=== PATIENT | female | born 1960 | race Caucasian/White ===

== ENCOUNTER 2019-11-28 11:55 | Inpatient (IN) ==
[2019-11-28] MEDS ORDERED: DUONEB (A & A) INH PRN (12:49)
[2019-11-28] MEDS ORDERED: ZITHROMAX 500 MG/NS 500 MG/250 ML IVPB IV ONE (13:00)
[2019-11-28 13:07] LABS: BASO# 0.06 X1000 (0.0-0.2); BASO% 0.5 % (0.0-0.8); EOS# 0.05 X1000 (0.0-0.7); EOS% 0.4 % (0.0-10.0); HEMATOCRIT 37.6 % (37.0-47.0); HEMOGLOBIN 11.6 g/dL (12.0-16.0); IMM GRAN# 0.05 X1000 (0.0-0.04); IMM GRAN% 0.4 % (0.0-0.5); LYMPH# 1.27 X1000 (1.2-3.4); LYMPH% 9.5 % (20.5-51.1); MCH 26.7 PG (27-31); MCHC 30.9 g/dL (33-37); MCV 86.6 FL (81-99); MONO# 1.16 X1000 (0.11-0.59); MONO% 8.7 % (1.7-9.3); MPV 10.9 FL (7.4-10.4); NEUT# 10.71 X1000 (1.4-6.5); NEUT% 80.5 % (42.2-75.2); PLT 262 X1000 (130-400); RBC 4.34 XMIL (4.2-5.4); RDW 17.6 % (11.5-14.5)
[2019-11-28] MEDS: ROCEPHIN 1 GM in NS 50 ML IV SCH (13:33)
[2019-11-28] MEDS: APRESOLINE IV PRN (13:33)
[2019-11-28 13:37] LABS: AGAP 15; ALBUMIN 3.9 g/dL (3.5-5.0); ALKALINE PHOSPHATASE 134 U/L (32-104); BUN 14 mg/dL (8-22); CALCIUM 9.8 mg/dL (8.8-10.2); CHLORIDE 102 mmol/L (98-107); COSMO 284; CREATININE 0.7 mg/dL (0.5-0.9); ESTIMATED GFR > 60; GLUCOSE 167 mg/dL (70-104); GOT 26 U/L (10-30); GPT 27 U/L (10-36); POTASSIUM 3.7 mmol/L (3.5-5.1); SODIUM 140 mmol/L (136-145); TCO2 23 mmol/L (25-35); TOTAL PROTEIN 7.8 g/dL (6.3-8.3)
--- NOTE | 2019-11-28 13:56 | EKG Report ---
Test Performed on : 11/28/2019 1:38:20 PM Test Reason : assess rhythm Blood Pressure : / mmHG Vent. Rate : 111 BPM Atrial Rate : 111 BPM P-R Int : 148 ms QRS Dur : 092 ms QT Int : 330 ms P-R-T Axes : 058 011 070 degrees QTc Int : 448 ms Sinus tachycardia. Otherwise normal ECG When compared with ECG of 08-FEB-2016 18:48, Vent. rate has increased BY 38 BPM Confirmed by Maxx Oconnell MD ([id number]) on 12/11/2019 5:57:37 AM
[2019-11-28] MEDS ORDERED: SOLU-MEDROL IV ONE (13:59)
[2019-11-28] MEDS: ZOFRAN IV PRN (14:45)
[2019-11-28] MEDS: TYLENOL PO PRN (14:45)
[2019-11-28] MEDS ORDERED: SYNTHROID PO SCH (14:45)
--- NOTE | 2019-11-28 14:57 | HISTORY AND PHYSICAL ---
PRIMARY CARE PROVIDER: Dr. Cristobal. CHIEF COMPLAINT: Direct admit for pneumonia. HISTORY OF PRESENT ILLNESS: Ms. Hernandez is a 59-year-old, female, who carries a past medical history of COPD, hypertension, sleep apnea, chronic pain secondary to fibromyalgia, arthritis, anxiety, depression, lupus, rheumatoid arthritis, hypothyroid disorder. Quit smoking 58 days ago. Prior to that, she was about a 1 pack every 2 days smoker, has done so since the age of 20. She reports she has been around her grand babies who have had RSV. She started wheezing a couple of days ago, having shortness of breath and a nonproductive cough, and for 2 days has had some nausea with diarrhea, about 3 to 4 episodes. Her home breathing treatments were not working. She went to the doctor's office to be evaluated. She was diagnosed with pneumonia, told that she was flu negative, and was directly admitted to the hospital. She does have a white count of 13. Temperature is 98.3 degrees. She was tachycardic at 119, hypertensive at 209/87. She was 97% on room air. Will initiate her on IV antibiotics, supplemental O2, bronchodilators, IV steroids, give her a dose of Apresoline now, and p.r.n. antiemetics. PAST MEDICAL HISTORY: Per HPI. PAST SURGICAL HISTORY: Cholecystectomy, hysterectomy, section, tonsillectomy, gastric bypass. FAMILY HISTORY: Not pertinent. SOCIAL HISTORY: She is , at bedside. She does have children and grandchildren, a total of 5. She was a 1 pack per day smoker every 2 days, has done so since the age of 20. She quit 58 days ago. No alcohol or illicit drug use. REVIEW OF SYSTEMS: Positive for fever, chills, cough (nonproductive). Positive for nausea and diarrhea for 2 days, 3 to 4 episodes, no appetite. No chest pain. No palpitations. Positive for wheezing. MEDICATIONS: Home medications are being compiled. PHYSICAL EXAMINATION: VITAL SIGNS: Temperature is 98.3 degrees, heart rate 119, respirations 20, blood pressure 209/87, O2 is 97% on room air. GENERAL: Ms. Hernandez is a pleasant, 59-year-old, female, who is sitting up in the bed in no acute distress. HEENT: Atraumatic, normocephalic. PERRL. NECK: Supple. Trachea midline. CARDIOVASCULAR: S1, S2 appreciated, but tachycardic. No murmurs, gallops, or rubs. RESPIRATORY: Lung sounds, more rhonchi on the left. Inspiratory and expiratory wheezes noted throughout. ABDOMEN: Obese, soft, nontender, nondistended. Positive bowel sounds x4 quadrants. LOWER EXTREMITIES: Negative for edema. NEUROLOGIC: No focal deficits noted. She is awake, alert, oriented, answers all questions appropriately, asking for water and food. DIAGNOSTIC DATA: EKG does show sinus tachycardia at 111 beats per minute. Chest x-ray is currently pending. LABORATORY DATA: White count 13, hemoglobin and hematocrit 11 and 37, platelet count 262,000. Sodium 140, potassium 3.7, BUN 14, creatinine 0.7, blood glucose is 167. Blood culture is pending. Sputum culture pending. ASSESSMENT AND PLAN: 1. Pneumonia. Will initiate her on intravenous antibiotics, supplemental oxygen, bronchodilators, aggressive pulmonary toilet. Currently awaiting blood cultures and sputum cultures. 2. Chronic obstructive pulmonary disease exacerbation. Will give her a dose of intravenous steroids now. Continue with scheduled steroids, bronchodilators, supplemental oxygen aggressive pulmonary toilet, intravenous antibiotics. 3. Nausea and diarrhea. Will continue with antiemetics. 4. Tachycardia. 5. Accelerated hypertension. We did give her a dose of intravenous Apresoline, and have Apresoline ordered as needed. Will start her back on her home metoprolol. 6. Diabetes mellitus with hyperglycemia. Will continue her home metformin. Place her on sliding scale and fingerstick blood sugars. Check hemoglobin A1c. 7. Chronic pain syndrome. Continue her home [place]. 8. Anxiety and depression. Will continue home medications. 9. Hypothyroidism. Will continue Synthroid. Check TSH in the morning. Further recommendation to follow physician evaluation, laboratory and diagnostic data. Dictated by DHRUV Coreas for Keegan Cristobal MD cc: Keegan Cristobal MD [facility]
[2019-11-28] MEDS: DUONEB (A & A) INH SCH ×3 (15:20→23:51)
[2019-11-28 16:04] LABS: BASO# 0.07 X1000 (0.0-0.2); BASO% 0.5 % (0.0-0.8); EOS# 0.04 X1000 (0.0-0.7); EOS% 0.3 % (0.0-10.0); HEMATOCRIT 35.4 % (37.0-47.0); HEMOGLOBIN 10.8 g/dL (12.0-16.0); IMM GRAN# 0.05 X1000 (0.0-0.04); IMM GRAN% 0.4 % (0.0-0.5); LYMPH# 1.42 X1000 (1.2-3.4); LYMPH% 10.6 % (20.5-51.1); MCH 26.3 PG (27-31); MCHC 30.5 g/dL (33-37); MCV 86.3 FL (81-99); MONO# 0.94 X1000 (0.11-0.59); MPV 11.1 FL (7.4-10.4); NEUT# 10.89 X1000 (1.4-6.5); NEUT% 81.2 % (42.2-75.2); PLT 236 X1000 (130-400); RDW 17.4 % (11.5-14.5); WBC 13.41 X1000 (4.8-10.8)
[2019-11-28 16:14] LABS: BE 1.5 mmoll (-3.0-3.0); BLOOD TYPE ARTERIAL; O2(CT) 18.5 mL/dL (15.0-23.0); O2HB 92.6 % (95.0-99.0); PCO2(98.6) 34 mmHg (35-45); PO2(98.6) 64 mmHg (60-100); SAMPLE BLOOD; SAO2 95.1 % (95.0-100.0); THB 14.2 g/dL (11.5-17.4); pH(98.6) 7.47 (7.35-7.45)
[2019-11-28 16:17] LABS: ALLEN TEST YES; MODALITY ROOM AIR
[2019-11-28 16:23] LABS: INR 1.07; PROTIME 14.5 Seconds (11.0-16.0)
[2019-11-28 16:24] LABS: PTT 35.1 Seconds (22.3-41.8)
[2019-11-28] MEDS: NEURONTIN PO SCH (16:47)
[2019-11-28] MEDS: GLUCOPHAGE PO SCH (16:47)
[2019-11-28] MEDS: REQUIP PO SCH (16:47)
--- NOTE | 2019-11-28 17:16 | Diag Imaging Result Doc PS360 ---
EXAM: CHEST-2 VIEWS HISTORY: Pneumonia TECHNIQUE: Two views COMPARISON: 01/16/2018 FINDINGS: The lungs are well expanded. The heart is not enlarged. The vessels are not distended. There are dense mid left lung infiltrates. No pleural effusions. IMPRESSION: Left upper lobe pneumonia. Short-term interval follow-up recommended to ensure there is clearing. Electronically signed by Brigido Sol 11/28/2019 5:14 PM
[2019-11-28 17:43] LABS: URINE SOURCE CLEAN CATCH
[2019-11-28 17:50] LABS: BILIRUBIN URINE NEGATIVE (NEGATIVE); BLOOD URINE NEGATIVE (NEGATIVE); COLOR YELLOW; GLUCOSE URINE TRACE mg/dL (NEGATIVE); KETONE URINE 20 mg/dL (NEGATIVE); LEUKOCYTES URINE NEGATIVE (NEGATIVE); NITRITE URINE NEGATIVE (NEGATIVE); PROTEIN URINE TRACE mg/dL (NEGATIVE); SP GRAVITY URINE 1.015; TURBIDITY URINE CLEAR (CLEAR); UROBILINOGEN URINE NORMAL (NORMAL)
[2019-11-28 17:51] LABS: UR EPITHELIAL CELLS <10 /HPF (<10); URINE BACTERIA NEGATIVE /HPF; URINE RBC <10 /HPF (<10); URINE WBC <10 /HPF (<10)
[2019-11-28] MEDS: PULMICORT INH SCH (19:46)
[2019-11-28] MEDS: CYMBALTA PO SCH (20:19)
[2019-11-28] MEDS: MUCINEX PO SCH (20:19)
[2019-11-28] MEDS: SEROQUEL PO SCH (20:20)
[2019-11-28] MEDS: ZANAFLEX PO SCH (20:20)
[2019-11-28] MEDS: LOPRESSOR PO SCH (20:20)
[2019-11-28] MEDS: NORCO-10 PO PRN (20:21)
[2019-11-28] MEDS: SOLU-MEDROL IV SCH (22:21)
[2019-11-29] MEDS: DUONEB (A & A) INH SCH ×6 (04:30→22:53)
[2019-11-29] MEDS: ZANAFLEX PO SCH ×3 (06:00→20:48)
[2019-11-29 06:08] LABS: AGAP 16; ALBUMIN 4.1 g/dL (3.5-5.0); ALKALINE PHOSPHATASE 142 U/L (32-104); BUN 16 mg/dL (8-22); CALCIUM 10.2 mg/dL (8.8-10.2); CHLORIDE 101 mmol/L (98-107); COSMO 291; CREATININE 0.9 mg/dL (0.5-0.9); ESTIMATED GFR > 60; GLUCOSE 293 mg/dL (70-104); GOT 26 U/L (10-30); GPT 30 U/L (10-36); POTASSIUM 3.9 mmol/L (3.5-5.1); SODIUM 140 mmol/L (136-145); TCO2 23 mmol/L (25-35)
[2019-11-29 06:12] LABS: HEMOGLOBIN A1C 7.1 % (4.8-6.0)
[2019-11-29] MEDS: TYLENOL PO PRN (06:22)
[2019-11-29] MEDS: SOLU-MEDROL IV SCH ×3 (06:22→22:05)
[2019-11-29 06:27] LABS: BASO# 0.04 X1000 (0.0-0.2); BASO% 0.3 % (0.0-0.8); HEMATOCRIT 37.9 % (37.0-47.0); HEMOGLOBIN 11.4 g/dL (12.0-16.0); IMM GRAN# 0.12 X1000 (0.0-0.04); IMM GRAN% 0.8 % (0.0-0.5); LYMPH# 1.39 X1000 (1.2-3.4); LYMPH% 9.6 % (20.5-51.1); MCH 26.3 PG (27-31); MCHC 30.1 g/dL (33-37); MCV 87.3 FL (81-99); MONO% 4.2 % (1.7-9.3); MPV 11.5 FL (7.4-10.4); NEUT# 12.29 X1000 (1.4-6.5); NEUT% 85.1 % (42.2-75.2); PLT 272 X1000 (130-400); RBC 4.34 XMIL (4.2-5.4); RDW 17.9 % (11.5-14.5); WBC 14.44 X1000 (4.8-10.8)
[2019-11-29 07:07] LABS: BANDS 4 % (0-1); LYMPHS 6 % (21-51); MONO 4 % (1-9); SEGS 86 % (42-75)
[2019-11-29] MEDS: PULMICORT INH SCH ×2 (07:51→19:24)
[2019-11-29] MEDS: ABILIFY PO SCH (08:53)
[2019-11-29] MEDS: REQUIP PO SCH ×3 (08:53→20:48)
[2019-11-29] MEDS: GLUCOPHAGE PO SCH ×2 (08:53→16:37)
[2019-11-29] MEDS: LOPRESSOR PO SCH ×2 (08:53→20:48)
[2019-11-29] MEDS: ZITHROMAX PO SCH (08:53)
[2019-11-29] MEDS: MUCINEX PO SCH ×2 (08:54→20:47)
[2019-11-29] MEDS: PRINIVIL PO SCH (08:54)
[2019-11-29] MEDS: XARELTO PO SCH (08:54)
[2019-11-29] MEDS: NEURONTIN PO SCH ×3 (08:54→20:47)
[2019-11-29] MEDS: ROCEPHIN 1 GM in NS 50 ML IV SCH (14:40)
[2019-11-29] MEDS: HUMALOG (PARKWAY) SUBQ SCH ×2 (19:49→21:04)
[2019-11-29] MEDS: CYMBALTA PO SCH (20:47)
[2019-11-29] MEDS: SEROQUEL PO SCH (20:48)
--- NOTE | 2019-11-29 21:52 | PROGRESS NOTE ---
DATE: 11/29/2019 SUBJECTIVE: Patient notes that she is feeling a lot better. Still having some cough and congestion, but overall breathing has improved. PHYSICAL EXAMINATION: Temperature 97.8, pulse 81, respiratory rate 18, BP 173/86.General: Patient is in no current respiratory distress, although she is lying flat in the bed. She has just received a breathing treatment. HEENT: Normocephalic. Neck: Supple. Cardiovascular: Regular rate. No murmurs. Chest: Decreased but equal. No current crackles. No wheezing. Abdomen: Soft, nondistended. Extremities: Moves all extremities. ASSESSMENT: 1. Pneumonia. 2. Chronic obstructive pulmonary disease with exacerbation. 3. Hypertension. 4. Diabetes with A1c at 7.1. 5. Leukocytosis. 6. Hypothyroidism. 7. Chronic pain. 8. Anxiety/depression. PLAN: We will continue patient in the hospital. Continue antibiotics and breathing treatments. We will add lisinopril. Continue sliding-scale insulin and will follow. cc: Keegan Cristobal MD
[2019-11-30] MEDS: NORCO-10 PO PRN ×2 (00:40→22:20)
[2019-11-30] MEDS: DUONEB (A & A) INH SCH ×6 (02:55→23:04)
[2019-11-30] MEDS: HUMALOG (PARKWAY) SUBQ SCH ×4 (07:04→22:07)
[2019-11-30] MEDS: SOLU-MEDROL IV SCH ×3 (07:04→22:07)
[2019-11-30] MEDS: ZANAFLEX PO SCH ×3 (07:05→22:05)
[2019-11-30] MEDS: PULMICORT INH SCH ×2 (07:14→19:40)
[2019-11-30] MEDS: REQUIP PO SCH ×3 (08:04→16:26)
[2019-11-30] MEDS: GLUCOPHAGE PO SCH ×2 (08:04→16:26)
[2019-11-30] MEDS: ABILIFY PO SCH (08:04)
[2019-11-30] MEDS: NEURONTIN PO SCH ×3 (08:04→16:26)
[2019-11-30] MEDS: MUCINEX PO SCH ×2 (08:04→22:03)
[2019-11-30] MEDS: ZITHROMAX PO SCH (08:04)
[2019-11-30] MEDS: XARELTO PO SCH (08:05)
[2019-11-30] MEDS: PRINIVIL PO SCH (08:05)
[2019-11-30] MEDS: LOPRESSOR PO SCH ×2 (08:05→22:05)
[2019-11-30] MEDS: TYLENOL PO PRN ×2 (10:23→18:48)
--- NOTE | 2019-11-30 10:52 | Diag Imaging Result Doc PS360 ---
EXAM: CHEST-2 VIEWS - 11/30/2019 HISTORY: hypoxia TECHNIQUE: Chest two views COMPARISON: 11/28/2019 FINDINGS: Heart size is normal. There is been interval decrease in left upper lobe infiltrate. The right lung remains clear. There is no pleural effusion or pneumothorax identified. IMPRESSION: Decrease in left upper lobe infiltrate. Electronically signed by Nicolas Matos 11/30/2019 10:50 AM
[2019-11-30] MEDS: ROCEPHIN 1 GM in NS 50 ML IV SCH (13:06)
[2019-11-30] MEDS: CYMBALTA PO SCH (22:05)
[2019-11-30] MEDS: SEROQUEL PO SCH (22:05)
--- NOTE | 2019-11-30 23:16 | PROGRESS NOTE ---
DATE: 11/30/2019 SUBJECTIVE: The patient notes she still feels bad, but feels much better than admission. She is still having some shortness of breath and coughing, but this is improving. Still having wheezing. States she is still too tired to get out of bed. PHYSICAL EXAMINATION: Vital Signs: Temperature 98 degrees, pulse 103, respiratory rate 18, BP 158/80. General: The patient is awake, pleasant. Currently she is in mild respiratory distress, which is an improvement. HEENT: Normocephalic. Neck: Supple. Cardiovascular: Regular rate. She has decreased but equal breath sounds. Positive wheezing moderately throughout. No crackles. Improved air movement. Abdomen: Soft, obese, nondistended. Extremities: Moves all extremities. Neurologic: No changes. ASSESSMENT: 1. Pneumonia. 2. Chronic obstructive pulmonary disease (COPD) with exacerbation. 3. Nausea, vomiting. 4. Tachycardia. 5. Accelerated hypertension. 6. Diabetes with an A1c of 7.1. 7. Chronic pain. 8. Chronic anxiety and depression. PLAN: Continue lisinopril, sliding scale insulin. Continue Rocephin, azithromycin, breathing treatments, steroids, oxygen and will follow, hopefully home soon. cc: Keegan Cristobal MD
[2019-12-01] MEDS: DUONEB (A & A) INH SCH ×6 (03:08→23:18)
[2019-12-01] MEDS: TYLENOL PO PRN ×2 (03:34→16:57)
[2019-12-01] MEDS: ZANAFLEX PO SCH ×3 (06:16→23:07)
[2019-12-01] MEDS: SOLU-MEDROL IV SCH ×2 (06:16→17:02)
[2019-12-01] MEDS: PULMICORT INH SCH ×2 (07:05→19:21)
[2019-12-01] MEDS: HUMALOG (PARKWAY) SUBQ SCH ×4 (07:09→23:10)
[2019-12-01] MEDS: MUCINEX PO SCH ×2 (08:51→23:08)
[2019-12-01] MEDS: LOPRESSOR PO SCH ×2 (08:52→23:07)
[2019-12-01] MEDS: XARELTO PO SCH (08:52)
[2019-12-01] MEDS: REQUIP PO SCH ×3 (08:52→16:57)
[2019-12-01] MEDS: ZITHROMAX PO SCH (08:52)
[2019-12-01] MEDS: ABILIFY PO SCH (08:52)
[2019-12-01] MEDS: NEURONTIN PO SCH ×3 (08:52→16:57)
[2019-12-01] MEDS: PRINIVIL PO SCH (08:52)
[2019-12-01] MEDS: GLUCOPHAGE PO SCH ×2 (08:53→16:57)
[2019-12-01] MEDS: NORCO-10 PO PRN ×2 (12:31→23:06)
[2019-12-01] MEDS ORDERED: LACTULOSE PO ONE (12:35)
[2019-12-01] MEDS: ROCEPHIN 1 GM in NS 50 ML IV SCH (12:49)
--- NOTE | 2019-12-01 22:43 | PROGRESS NOTE ---
DATE: 12/01/2019 SUBJECTIVE: The patient notes that she is starting to feel a little bit better. She is having less cough, congestion, less shortness of breath, is able to ambulate a little bit better but still gets very weak. PHYSICAL EXAMINATION: Temperature 98 degrees, pulse 89, respiratory rate 18, BP 146/80.General: The patient is pleasant, currently in no distress. HEENT: Normocephalic. Neck: Supple. Cardiovascular: Regular rate. Chest: Decreased but improved. Positive wheezing, but also improved, minimally labored. Abdomen: Soft, nondistended. Extremities: Moves all extremities. Neurologic: No focal changes. ASSESSMENT: 1. Pneumonia. 2. Chronic obstructive pulmonary disease (COPD) with exacerbation. 3. Acute hypoxic respiratory failure, improved. 4. Hypertension. Continue lisinopril. 5. Diabetes with an A1c of 7.1. 6. Leukocytosis. PLAN: We will continue antibiotics, Rocephin and azithromycin. Continue Solu-Medrol, decrease to 40 q.12. If she tolerates, hopefully can transition home tomorrow. cc: Keegan Cristobal MD
[2019-12-01] MEDS: CYMBALTA PO SCH (23:07)
[2019-12-01] MEDS: SEROQUEL PO SCH (23:08)
[2019-12-02] MEDS: DUONEB (A & A) INH SCH ×6 (03:51→23:16)
[2019-12-02 05:30] LABS: HEMOGLOBIN 10.9 g/dL (12.0-16.0); MCH 25.9 PG (27-31); MCHC 29.5 g/dL (33-37); MCV 87.9 FL (81-99); MPV 11.1 FL (7.4-10.4); RBC 4.21 XMIL (4.2-5.4); RDW 17.6 % (11.5-14.5); WBC 15.96 X1000 (4.8-10.8)
[2019-12-02 05:54] LABS: AGAP 16; ALBUMIN 3.8 g/dL (3.5-5.0); ALKALINE PHOSPHATASE 102 U/L (32-104); BUN 28 mg/dL (8-22); CALCIUM 10.1 mg/dL (8.8-10.2); CHLORIDE 100 mmol/L (98-107); COSMO 295; CREATININE 0.6 mg/dL (0.5-0.9); ESTIMATED GFR > 60; GLUCOSE 206 mg/dL (70-104); GOT 26 U/L (10-30); GPT 32 U/L (10-36); MAGNESIUM 2.1 mg/dL (1.5-2.7); POTASSIUM 4.1 mmol/L (3.5-5.1); SODIUM 142 mmol/L (136-145); TCO2 26 mmol/L (25-35); TOTAL PROTEIN 7.3 g/dL (6.3-8.3)
[2019-12-02] MEDS: ZANAFLEX PO SCH ×3 (06:16→21:12)
[2019-12-02] MEDS: SOLU-MEDROL IV SCH ×2 (06:17→17:26)
[2019-12-02] MEDS: HUMALOG (PARKWAY) SUBQ SCH ×4 (06:17→21:16)
[2019-12-02] MEDS: PULMICORT INH SCH ×2 (07:08→19:26)
[2019-12-02] MEDS: ZITHROMAX PO SCH (09:13)
[2019-12-02] MEDS: GLUCOPHAGE PO SCH ×2 (09:13→17:25)
[2019-12-02] MEDS: REQUIP PO SCH ×3 (09:13→17:25)
[2019-12-02] MEDS: MUCINEX PO SCH ×2 (09:13→21:12)
[2019-12-02] MEDS: NEURONTIN PO SCH ×3 (09:13→17:25)
[2019-12-02] MEDS: XARELTO PO SCH (09:13)
[2019-12-02] MEDS: ABILIFY PO SCH (09:13)
[2019-12-02] MEDS: PRINIVIL PO SCH (09:13)
[2019-12-02] MEDS: LOPRESSOR PO SCH ×2 (09:13→21:12)
[2019-12-02] MEDS: OMNICEF PO SCH ×2 (12:49→21:12)
[2019-12-02] MEDS: NORCO-10 PO PRN ×2 (12:55→21:40)
[2019-12-02] MEDS: TESSALON PO PRN (17:25)
[2019-12-02] MEDS: CYMBALTA PO SCH (21:12)
[2019-12-02] MEDS: SEROQUEL PO SCH (21:12)
--- NOTE | 2019-12-02 21:32 | PROGRESS NOTE ---
DATE: 12/02/2019 SUBJECTIVE: Patient notes she actually feels a bit worse today than she did yesterday. Still having a little bit of increased cough and congestion. Today seems a little bit worse, increased wheezing today and increased shortness of breath today. PHYSICAL EXAMINATION: Temperature 98 degrees, pulse 83, respiratory rate 18, BP 146/80.General: Patient is awake, alert, pleasant, obese female who is in mild distress. Actually a little bit worse than she was yesterday. HEENT: Normocephalic. Neck: Supple. Cardiovascular: Regular rate. chest: Positive rhonchi, no crackles, positive wheezing. Extremities: Moves all extremities. Neurologic: No changes. ASSESSMENT: 1. Chronic obstructive pulmonary disease with exacerbation. 2. Pneumonia. 3. Nausea, resolved. 4. Hypertension, improved. 1. Diabetes. PLAN: We will continue patient in the hospital. Continue Solu-Medrol, Rocephin, azithromycin, oxygen, breathing treatments, and will follow. cc: Keegan Cristobal MD
[2019-12-03] MEDS: DUONEB (A & A) INH SCH ×6 (03:51→23:25)
[2019-12-03] MEDS: TESSALON PO PRN ×3 (05:31→23:08)
[2019-12-03] MEDS: ZANAFLEX PO SCH ×3 (05:31→22:54)
[2019-12-03] MEDS: SOLU-MEDROL IV SCH ×2 (05:31→17:20)
[2019-12-03] MEDS: TYLENOL PO PRN (05:31)
[2019-12-03] MEDS: HUMALOG (PARKWAY) SUBQ SCH ×4 (06:02→22:52)
[2019-12-03] MEDS: PULMICORT INH SCH ×2 (07:52→19:32)
--- NOTE | 2019-12-03 08:59 | Diag Imaging Result Doc PS360 ---
EXAM: CHEST-PORTABLE HISTORY: dyspnea TECHNIQUE: Single view COMPARISON: 11/30/2019 FINDINGS: Poor inspiratory effort. The heart is mildly prominent. The vessels are not distended. There are no infiltrates. No effusion identified. IMPRESSION: Mildly prominent heart, but no congestive failure. Electronically signed by Brigido Sol 12/03/2019 8:57 AM
[2019-12-03] MEDS: NEURONTIN PO SCH ×3 (09:17→17:20)
[2019-12-03] MEDS: REQUIP PO SCH ×3 (09:17→17:20)
[2019-12-03] MEDS: ABILIFY PO SCH (09:17)
[2019-12-03] MEDS: PRINIVIL PO SCH (09:17)
[2019-12-03] MEDS: LOPRESSOR PO SCH ×2 (09:17→22:54)
[2019-12-03] MEDS: XARELTO PO SCH (09:17)
[2019-12-03] MEDS: MUCINEX PO SCH ×2 (09:18→22:53)
[2019-12-03] MEDS: OMNICEF PO SCH ×2 (09:18→22:54)
[2019-12-03] MEDS: GLUCOPHAGE PO SCH ×2 (09:18→17:20)
[2019-12-03] MEDS: ZITHROMAX PO SCH (09:18)
[2019-12-03] MEDS: NORCO-10 PO PRN ×2 (12:29→23:08)
--- NOTE | 2019-12-03 21:35 | PROGRESS NOTE ---
DATE: 12/03/2019 SUBJECTIVE: Patient notes overall she is feeling better, although still having lots of cough, congestion and still lots of wheezing. Denies any fevers, chills. PHYSICAL EXAM: Vital Signs: Temperature 98 degrees, pulse 75, respiratory rate 18, BP 161/97. General: Patient is pleasant. She is still in mild distress, but actually improved. HEENT: Normocephalic. Neck: Supple. Cardiovascular: Regular rate. Chest: Decreased breath sounds. Minimal wheezing. Better air movement. Positive rhonchi. No crackles. Persistent coughing on exam. ASSESSMENT: 1. Pneumonia 2. Chronic obstructive pulmonary disease with exacerbation. 3. Acute hypoxic respiratory failure. 4. Tachycardia. 5. Diabetes. 6. Hypertension. PLAN: We are going to continue patient in the hospital. Continue antibiotics, breathing treatments, steroids, oxygen. Hopefully home over the next 1 to 2 days if she improves. cc: Keegan Cristobal MD
[2019-12-03] MEDS: SEROQUEL PO SCH (22:54)
[2019-12-03] MEDS: CYMBALTA PO SCH (22:56)
[2019-12-04] MEDS: DUONEB (A & A) INH SCH ×6 (03:11→23:16)
[2019-12-04] MEDS: SOLU-MEDROL IV SCH ×3 (05:21→21:00)
[2019-12-04] MEDS: ZANAFLEX PO SCH ×3 (05:21→21:00)
[2019-12-04] MEDS: HUMALOG (PARKWAY) SUBQ SCH ×4 (06:11→21:04)
[2019-12-04] MEDS: PULMICORT INH SCH ×2 (07:38→19:23)
[2019-12-04] MEDS: REQUIP PO SCH ×3 (09:56→17:09)
[2019-12-04] MEDS: XARELTO PO SCH (09:56)
[2019-12-04] MEDS: NEURONTIN PO SCH ×3 (09:56→21:01)
[2019-12-04] MEDS: OMNICEF PO SCH ×2 (09:56→21:01)
[2019-12-04] MEDS: PRINIVIL PO SCH (09:56)
[2019-12-04] MEDS: ABILIFY PO SCH (09:56)
[2019-12-04] MEDS: ZITHROMAX PO SCH (09:57)
[2019-12-04] MEDS: LOPRESSOR PO SCH ×2 (09:57→21:01)
[2019-12-04] MEDS: GLUCOPHAGE PO SCH ×2 (09:57→17:09)
[2019-12-04] MEDS: MUCINEX PO SCH ×2 (09:57→21:00)
[2019-12-04] MEDS: TYLENOL PO PRN (10:23)
[2019-12-04] MEDS: CYMBALTA PO SCH (21:00)
[2019-12-04] MEDS: SEROQUEL PO SCH (21:01)
[2019-12-04] MEDS: NORCO-10 PO PRN (21:11)
[2019-12-04] MEDS: TESSALON PO PRN (21:11)
--- NOTE | 2019-12-04 21:14 | PROGRESS NOTE ---
DATE: 12/04/2019 SUBJECTIVE: Patient notes that she did not feel well last evening and is still having some cough, congestion and increased work of breathing today. States overall her symptoms seem to be slightly worse today than yesterday. PHYSICAL EXAMINATION: Vital Signs: Temperature 97.8, pulse 67, respiratory rate 18, BP 142/80. General: Patient pleasant. Currently in mild respiratory distress. She does appear to be a little bit more ill today than she was yesterday. HEENT: Normocephalic. Neck: Supple. Cardiovascular: Regular rate. Chest: Decreased but equal. Positive rhonchi throughout. No current crackles. Does have some mild wheezing. Abdomen: Soft, obese. Extremities: Moves all extremities. Neurologic: No changes. ASSESSMENT: 1. Acute hypoxic respiratory failure. 2. Next pneumonia. 3. Chronic obstructive pulmonary disease exacerbation. 4. Morbid obesity. 5. Hypertension. 6. Diabetes. PLAN: We are going to actually increase her Solu-Medrol from every 12 hours back to every 8 hours today. Continue Rocephin and azithromycin, and will follow. Hopefully, she can improve and be discharged home soon. cc: Keegan Cristobal MD
[2019-12-05] MEDS: DUONEB (A & A) INH SCH ×6 (03:08→23:57)
[2019-12-05] MEDS: NORCO-10 PO PRN ×2 (03:15→21:18)
[2019-12-05] MEDS: SOLU-MEDROL IV SCH ×2 (05:50→17:06)
[2019-12-05] MEDS: ZANAFLEX PO SCH ×3 (05:50→21:16)
[2019-12-05] MEDS: HUMALOG (PARKWAY) SUBQ SCH ×4 (06:00→21:14)
[2019-12-05] MEDS: PULMICORT INH SCH ×2 (07:26→19:54)
[2019-12-05] MEDS: GLUCOPHAGE PO SCH ×2 (08:13→17:06)
[2019-12-05] MEDS: ABILIFY PO SCH (08:13)
[2019-12-05] MEDS: MUCINEX PO SCH ×2 (08:14→21:17)
[2019-12-05] MEDS: NEURONTIN PO SCH ×3 (08:14→21:18)
[2019-12-05] MEDS: ZITHROMAX PO SCH (08:14)
[2019-12-05] MEDS: OMNICEF PO SCH ×2 (08:14→21:16)
[2019-12-05] MEDS: REQUIP PO SCH ×3 (08:14→17:06)
[2019-12-05] MEDS: XARELTO PO SCH (08:14)
[2019-12-05] MEDS: LOPRESSOR PO SCH ×2 (08:14→21:17)
[2019-12-05] MEDS ORDERED: PRINIVIL PO SCH (09:00)
[2019-12-05] MEDS: CYMBALTA PO SCH (21:17)
[2019-12-05] MEDS: SEROQUEL PO SCH (21:17)
--- NOTE | 2019-12-05 22:11 | PROGRESS NOTE ---
DATE: 12/05/2019 SUBJECTIVE: Patient notes that overall she is feeling better although she did have a bad night last night. States that she was having trouble ambulating last night secondary to shortness of breath. Denies any chest pain or palpitations. PHYSICAL EXAMINATION: Vital Signs: Reviewed. Temp 98 degrees, pulse 95, respiratory 16, BP 165/98. General: Patient is pleasant. She is an obese female who is currently in mild respiratory distress. HEENT: Normocephalic. Neck: Supple. Cardiovascular: Regular rate. Chest: More clear, but still has positive rhonchi throughout, better air movement. Abdomen: Soft, obese, nondistended. Extremities: Moves all extremities. Neurologic: No changes. ASSESSMENT AND PLAN: 1. Pneumonia. 2. Diabetes with A1c of 7.1. 3. Leukocytosis. 4. Hypertension. We are going to increase lisinopril from 10 to 20. 5. COPD with exacerbation. 6. Acute hypoxic respiratory failure. Overall, her chest x-ray does have improving left upper lobe pneumonia. We are going to continue her antibiotics, oxygen breathing treatments today, wean her steroids to 40 q. 12 h. If she tolerates, she can hopefully discharge home. cc: Keegan Cristobal MD
[2019-12-05] MEDS: ZOFRAN IV PRN (22:18)
[2019-12-06] MEDS: DUONEB (A & A) INH SCH ×6 (04:44→23:54)
[2019-12-06] MEDS: APRESOLINE IV PRN (04:56)
[2019-12-06] MEDS: ZANAFLEX PO SCH ×3 (04:56→20:59)
[2019-12-06] MEDS: SOLU-MEDROL IV SCH ×2 (05:05→17:02)
[2019-12-06] MEDS: HUMALOG (PARKWAY) SUBQ SCH ×4 (06:31→21:34)
[2019-12-06] MEDS: PULMICORT INH SCH ×2 (07:14→20:25)
[2019-12-06] MEDS: MUCINEX PO SCH ×2 (09:09→20:58)
[2019-12-06] MEDS: PRINIVIL PO SCH (09:09)
[2019-12-06] MEDS: ZITHROMAX PO SCH (09:09)
[2019-12-06] MEDS: ABILIFY PO SCH (09:09)
[2019-12-06] MEDS: REQUIP PO SCH ×3 (09:09→17:02)
[2019-12-06] MEDS: NEURONTIN PO SCH ×3 (09:09→20:59)
[2019-12-06] MEDS: XARELTO PO SCH (09:09)
[2019-12-06] MEDS: LOPRESSOR PO SCH ×2 (09:09→20:59)
[2019-12-06] MEDS: OMNICEF PO SCH ×2 (09:10→20:59)
[2019-12-06] MEDS: GLUCOPHAGE PO SCH ×2 (09:10→17:02)
[2019-12-06] MEDS ORDERED: NS 1,000 ML IV SCH ×2 (10:45→10:57)
[2019-12-06] MEDS ORDERED: NS 1,000 ML ONE (11:04)
[2019-12-06 11:16] LABS: BASO# 0.05 X1000 (0.0-0.2); BASO% 0.3 % (0.0-0.8); EOS# 0.01 X1000 (0.0-0.7); EOS% 0.1 % (0.0-10.0); HEMATOCRIT 40.4 % (37.0-47.0); HEMOGLOBIN 12.1 g/dL (12.0-16.0); IMM GRAN# 1.26 X1000 (0.0-0.04); IMM GRAN% 6.3 % (0.0-0.5); LYMPH# 2.14 X1000 (1.2-3.4); LYMPH% 10.7 % (20.5-51.1); MCH 26.5 PG (27-31); MCV 88.4 FL (81-99); MONO# 0.99 X1000 (0.11-0.59); MPV 10.3 FL (7.4-10.4); NEUT# 15.46 X1000 (1.4-6.5); NEUT% 77.6 % (42.2-75.2); PLT 322 X1000 (130-400); RBC 4.57 XMIL (4.2-5.4); RDW 17.5 % (11.5-14.5); WBC 19.91 X1000 (4.8-10.8)
[2019-12-06 11:18] LABS: AGAP 14; BUN 26 mg/dL (8-22); CALCIUM 10.3 mg/dL (8.8-10.2); CHLORIDE 94 mmol/L (98-107); COSMO 289; CREATININE 0.7 mg/dL (0.5-0.9); ESTIMATED GFR > 60; GLUCOSE 227 mg/dL (70-104); POTASSIUM 4.4 mmol/L (3.5-5.1); SODIUM 139 mmol/L (136-145); TCO2 31 mmol/L (25-35)
[2019-12-06 11:55] LABS: LYMPHS 16 % (21-51); MONO 7 % (1-9); SEGS 77 % (42-75)
[2019-12-06] MEDS: NORCO-10 PO PRN ×2 (14:02→20:57)
[2019-12-06] MEDS: ZOFRAN IV PRN (17:03)
--- NOTE | 2019-12-06 20:20 | Diag Imaging Result Doc PS360 ---
EXAM: CT THORAX W/O CONTRAST INDICATION: worsening pneumonia? TECHNIQUE: This exam was performed using automated exposure control, adjustment of mA or kV according to patient size, and/or use of iterative reconstruction technique. COMPARISON: None. FINDINGS: There is a small focal airspace consolidation involving the left upper lobe posteriorly indicating pneumonia. There are diffuse very fine punctate noncalcified nodules that are all less than 4 mm throughout both lungs, nonspecific but statistically most likely inflammatory nodules/noncalcified granulomata. There is no pleural fluid collection and no pneumothorax. There is no cardiomegaly. There is mild LAD atherosclerotic calcification. There is no evidence of significant mediastinal or hilar lymphadenopathy as imaged with unenhanced CT. Limited views of the upper abdomen reveal metallic tegan associated with the stomach. The upper abdomen is grossly unremarkable, otherwise. IMPRESSION: 1.Small airspace consolidation involving the left upper lobe suggesting pneumonia, possibly atypical pneumonia. 2.Fine punctate noncalcified nodules scattered throughout both lungs that are nonspecific but statistically most likely represent inflammatory nodules/noncalcified granulomata. Electronically signed by He Gutierrez 12/06/2019 8:18 PM
[2019-12-06] MEDS: SEROQUEL PO SCH (20:58)
[2019-12-06] MEDS: CYMBALTA PO SCH (20:59)
--- NOTE | 2019-12-06 23:59 | PROGRESS NOTE ---
DATE: 12/06/2019 SUBJECTIVE: Patient notes that she had a terrible night last night. She was not able to walk secondary to shortness of breath, cough and congestion. Denies any current fevers, chills. She denies any current wheezing. States overall she is improving. PHYSICAL EXAMINATION: Vital Signs: Temperature 98 degrees, pulse 75, respiratory 18, BP 171/69. General: Patient is a pleasant, obese female who is in mild respiratory distress sitting on side of the bed. HEENT: Normocephalic. Neck: Supple. Cardiovascular: Regular rate. Chest: Decreased but equal. Positive rhonchi throughout. No current wheezing. No crackles. Abdomen: Soft, obese, nondistended. Extremities: Moves all extremities. No edema. Neurologic: No changes. ASSESSMENT: 1. Acute hypoxic respiratory failure. Continues to be problematic. 2. Pneumonia. 3. Sepsis secondary to pneumonia. 4. Diabetes. 5. Chronic pain. 6. Chronic anxiety. 7. Hypothyroidism. 8. Chronic obstructive pulmonary disease with exacerbation. PLAN: We are going to continue patient in the hospital. We will increase lisinopril to 20 mg. Continue sliding scale. We will attempt to decrease Solu-Medrol to 40 q.12 and we will follow. cc: Keegan Cristobal MD
[2019-12-07] MEDS: DUONEB (A & A) INH SCH ×6 (03:17→22:37)
[2019-12-07] MEDS: ZANAFLEX PO SCH ×3 (06:20→21:53)
[2019-12-07] MEDS: SOLU-MEDROL IV SCH ×2 (06:20→17:28)
[2019-12-07] MEDS: HUMALOG (PARKWAY) SUBQ SCH ×4 (06:40→21:55)
[2019-12-07] MEDS: PULMICORT INH SCH ×2 (08:00→19:54)
[2019-12-07] MEDS: LOPRESSOR PO SCH ×2 (08:21→21:55)
[2019-12-07] MEDS: OMNICEF PO SCH ×2 (08:21→21:53)
[2019-12-07] MEDS: ABILIFY PO SCH (08:21)
[2019-12-07] MEDS: XARELTO PO SCH (08:22)
[2019-12-07] MEDS: ZITHROMAX PO SCH (08:22)
[2019-12-07] MEDS: GLUCOPHAGE PO SCH ×2 (08:22→16:00)
[2019-12-07] MEDS: PRINIVIL PO SCH (08:22)
[2019-12-07] MEDS: REQUIP PO SCH ×3 (08:22→17:28)
[2019-12-07] MEDS: NEURONTIN PO SCH ×3 (08:22→21:54)
[2019-12-07] MEDS: MUCINEX PO SCH ×2 (08:23→21:54)
[2019-12-07] MEDS: NORCO-10 PO PRN ×2 (09:42→21:54)
[2019-12-07] MEDS: ZOFRAN IV PRN (09:43)
[2019-12-07] MEDS: SEROQUEL PO SCH (21:53)
[2019-12-07] MEDS: CYMBALTA PO SCH (21:54)
[2019-12-07] MEDS: COLACE PO PRN (22:10)
--- NOTE | 2019-12-07 22:27 | PROGRESS NOTE ---
DATE: 12/07/2019 SUBJECTIVE: The patient states she had a terrible night last night. She is still having lots of cough, congestion and wheezing. Still having shortness of breath. OBJECTIVE: Temperature 98 degrees, pulse 75, respiratory rate 18, BP 169/103.General: The patient is awake. She is pleasant. She is actually much improved today. Color is improved. Breathing is essentially nonlabored. HEENT: Normocephalic. Neck supple. Cardiovascular: Regular rate. Chest: Much improved air movement. Minimal wheezing. Abdomen soft, obese, nondistended. Extremities: Moves all extremities. ASSESSMENT: 1. Pneumonia. 2. Chronic obstructive pulmonary disease with exacerbation. 3. Hypertension. 4. Diabetes. PLAN: We are going to continue the patient in the hospital. Continue Solu-Medrol 40 q. 12. Continue antibiotics, breathing treatments. Chest x-ray is actually improved. Blood pressure is elevated, so we are going to increase lisinopril to 20 mg. cc: Keegan Cristobal MD
[2019-12-08] MEDS: ZOFRAN IV PRN (00:34)
[2019-12-08] MEDS: DUONEB (A & A) INH SCH ×2 (02:52→07:51)
[2019-12-08] MEDS: ZANAFLEX PO SCH (06:32)
[2019-12-08] MEDS: SOLU-MEDROL IV SCH (06:32)
[2019-12-08] MEDS: HUMALOG (PARKWAY) SUBQ SCH (06:32)
[2019-12-08] MEDS ORDERED: SYNTHROID PO SCH (07:00)
[2019-12-08] MEDS: PULMICORT INH SCH (07:51)
[2019-12-08] MEDS: MUCINEX PO SCH (08:41)
[2019-12-08 08:42] VITALS: BP 136/91
[2019-12-08] MEDS: XARELTO PO SCH (08:42)
[2019-12-08] MEDS: GLUCOPHAGE PO SCH (08:42)
[2019-12-08] MEDS: LOPRESSOR PO SCH (08:42)
[2019-12-08] MEDS: ABILIFY PO SCH (08:42)
[2019-12-08] MEDS: OMNICEF PO SCH (08:42)
[2019-12-08] MEDS: REQUIP PO SCH (08:42)
[2019-12-08] MEDS: ZITHROMAX PO SCH (08:42)
[2019-12-08] MEDS: NEURONTIN PO SCH (08:42)
[2019-12-08] MEDS: PRINIVIL PO SCH (08:42)
[2019-12-08] MEDS: COLACE PO PRN (09:31)
[2019-12-08] MEDS: NORCO-10 PO PRN (09:31)
--- NOTE | 2019-12-08 13:24 | DISCHARGE SUMMARY ---
ADMISSION DATE: 11/28/2019 DISCHARGE DATE: 12/08/2019 PRIMARY CARE PHYSICIAN: Keegan Cristobal MD. ADMISSION DIAGNOSES: 1. Pneumonia. 2. Chronic obstructive pulmonary disease exacerbation. 3. Nausea and diarrhea. 4. Tachycardia. 5. Accelerated hypertension. 6. Diabetes with hyperglycemia. 7. Chronic pain syndrome. 8. Anxiety, depression. 9. Hypothyroidism. DISCHARGE DIAGNOSES: 1. Pneumonia, improved. 2. Chronic obstructive pulmonary disease exacerbation, improved. 3. Hypertension. 4. Diabetes. SUMMARY OF FINDINGS: This is a 59-year-old female who presented to the emergency room stating that she started wheezing a couple of days prior to arriving with shortness of breath, nonproductive cough, 2 days of nausea and diarrhea, about 3 to 4 episodes. Home breathing treatments were not working. She went to her doctor's office to be evaluated, was diagnosed with pneumonia and was directly admitted to the hospital. She had a white count of 13, hypertensive at 209/87, was saturating 97% on room air. She was placed on IV antibiotics, bronchodilators, aggressive pulmonary toilet, steroids weaned to taper. Her white blood cell count yesterday was 19.91, which was elevated secondary to her steroids. Her blood sugars have remained around 150- 228. We did a CT of the chest on 12/06/2019 that showed a small airspace consolidation involving the left upper lobe suggesting pneumonia, possibly an atypical pneumonia. She has remained afebrile for greater than 24 hours and it is felt that she can safely be discharged home. DISCHARGE MEDICATIONS: Will include duo nebs every 2 hours p.r.n., aripiprazole 15 mg p.o. daily, azithromycin 250 mg p.o. daily #3 with no refills, cefdinir 300 mg p.o. b.i.d. #10 with no refills, Duloxetine 60 mg p.o. at bedtime, gabapentin 800 mg p.o. t.i.d., [place] 10 1 p.o. b.i.d. p.r.n., levothyroxine 200 mcg p.o. daily, metformin 500 mg p.o. b.i.d., metoprolol 25 mg p.o. b.i.d., quetiapine 100 mg p.o. at bedtime, Xarelto 20 mg p.o. daily, Ropinirole 3 mg p.o. t.i.d., tizanidine 4 mg p.o. every 8 hours, Trilogy Ellipta 1 puff daily, Medrol Dosepak take as directed, and Singulair 10 mg p.o. daily in the evening. FOLLOWUP: She will need to follow up with her primary care physician in the next 1 to 2 weeks and call his office for an appointment. Dictated by DHRUV Wilson for Keegan Cristobal MD cc: DHRUV Wilson MD
--- NOTE | 2019-12-09 05:16 | DISCHARGE SUMMARY ---
ADMISSION DATE: 11/28/2019 DISCHARGE DATE: 12/08/2019 ADDENDUM: Patient seen and examined by myself. Full note dictated and discussed with nurse practitioner. On discharge, patient is awake, alert, currently in no distress. Morbidly obese female who is pleasant. Still smoking. She currently is on oxygen. We are going to discharge her home likely with oxygen. On discharge, she is still requiring oxygen. She is improving. A1c is 7.1. Blood pressures were elevated. We added lisinopril. We will discharge her home on Omnicef, azithromycin and a Medrol Dosepak. TIME SPENT: Greater than 30 minutes was spent in total care. cc: Keegan Cristobal MD
== END 2019-12-08 11:20 | disposition home or self-care (01) | DRG 190 ==
LOC: P.DIRADM 11:55 → P.MEDSURG 12:21
PROVIDERS: ATTEND Family Medicine